=== PATIENT | male | born 1950 | race Caucasian/White ===

== ENCOUNTER 2017-11-18 01:42 | Emergency (ER) | payer MEDICARE, MEDICAID ==
[~2017-11-18] VITALS: Ht 160 cm; Wt 73.0 kg
[~2017-11-18 01:42] MED LIST: [UNRECOGNIZED DRUG - OTHER]
[2017-11-18] MEDS ORDERED: IBUPROFEN 600MG TABLET PO ONE (07:45)
[2017-11-18 09:27] VITALS: BP 127/77
== END 2017-11-18 09:31 | disposition home or self-care (01) ==
LOC: ER 01:42
DX: M54.5 Low back pain (principal); Z88.8 Allergy status to other drugs, medicaments and biological substances
CPT/HCPCS: 72100; 99284